=== PATIENT | female | born 1985 | race Caucasian/White ===

== ENCOUNTER 2018-05-13 06:02 | Emergency (ER) | payer OTHER ==
[~2018-05-13] VITALS: Ht 157.5 cm; Wt 65.3 kg
[~2018-05-13 06:02] MED LIST: ALBU90OI INH; ERGO400 PO; FLUO10 PO; IBUP800 PO; Percocet 5-3251 EACH PO; Sprintec1 EACH PO
[2018-05-13] MEDS ORDERED: Cleocin HCl300 MG PO (07:35)
== END 2018-05-13 08:14 | disposition home or self-care (01) ==
LOC: ER 06:02
DX: L03.211 Cellulitis of face (principal); Z91.018 Allergy to other foods; Z88.6 Allergy status to analgesic agent; Z79.899 Other long term (current) drug therapy
CPT/HCPCS: 36415; 96365; 99283-25

== ENCOUNTER 2018-06-20 17:22 | Emergency (ER) | payer OTHER ==
[~2018-06-20] VITALS: Ht 157.5 cm; Wt 68.0 kg
[~2018-06-20 17:22] MED LIST changes: +Cleocin HCl300 MG PO
[2018-06-20] MEDS ORDERED: Cleocin HCl300 MG PO (18:30)
== END 2018-06-20 18:36 | disposition home or self-care (01) ==
LOC: ER 17:22
DX: L03.211 Cellulitis of face (principal); Z91.018 Allergy to other foods; Z88.6 Allergy status to analgesic agent; Z88.8 Allergy status to other drugs, medicaments and biological substances; Z79.899 Other long term (current) drug therapy
CPT/HCPCS: 99283

== ENCOUNTER → 2018-08-05 | Outpatient (CLI) | payer OTHER ==
[2018-08-06 17:07] LABS: HPV 16 Negative (Negative); HPV 18 Negative (Negative); HPV OTHER HR TYPES Positive (Negative)
== END | disposition home or self-care (01) ==
LOC: LAB 10:18 → LAB SHORT 10:18
PROVIDERS: Obstetrics & Gynecology
DX: Z01.419 Encounter for gynecological examination (general) (routine) without abnormal findings (principal)
CPT/HCPCS: 87624; 87625; G0123

== ENCOUNTER → 2018-10-06 | Outpatient (CLI) | payer OTHER ==
[2018-10-09 15:07] LABS: CHLAMYDIA BY NAA Negative (Negative); GONOCOCCUS BY NAA Negative (Negative); TRICH VAG BY NAA Negative (Negative)
== END | disposition home or self-care (01) ==
LOC: LAB SHORT 13:30 → PLD 13:30 → LAB 13:30
PROVIDERS: Obstetrics & Gynecology
DX: Z11.3 Encounter for screening for infections with a predominantly sexual mode of transmission (principal); R87.810 Cervical high risk human papillomavirus (HPV) DNA test positive
CPT/HCPCS: 87491; 87591; 87661; 88305

== ENCOUNTER 2018-11-27 06:07 | Day surgery (SDC) | payer OTHER ==
[~2018-11-27] VITALS: Ht 157.5 cm; Wt 69.0 kg
[~2018-11-27 06:07] MED LIST changes: +ALBU90OI
[2018-11-27] MEDS ORDERED: Multivitamin1 EAC1 PO (06:48)
== END 2018-11-27 09:00 | disposition home or self-care (01) ==
LOC: ORSCSDS 06:07
PROVIDERS: Obstetrics & Gynecology
PROC: 0UT74ZZ Resection of Bilateral Fallopian Tubes, Percutaneous Endoscopic Approach (ICD-10-PCS; principal; 2018-11-27 07:30)
DX: Z30.2 Encounter for sterilization (principal)
CPT/HCPCS: 88302; J0330; J1100; J1885; J2250; J2405; J2704; J3010; J7120

== ENCOUNTER 2019-07-19 16:47 | Emergency (ER) | payer OTHER ==
[~2019-07-19] VITALS: Ht 157.5 cm; Wt 65.8 kg
[~2019-07-19 16:47] MED LIST changes: +Multivitamin1 EAC1 PO
[2019-07-19] MEDS ORDERED: Robaxin-750750 MG PO (18:56)
[2019-07-19] MEDS ORDERED: IBUP600 PO (18:59)
== END 2019-07-19 19:19 | disposition home or self-care (01) ==
LOC: ER 16:47
DX: S46.911A Strain of unspecified muscle, fascia and tendon at shoulder and upper arm level, right arm, initial encounter (principal); S43.401A Unspecified sprain of right shoulder joint, initial encounter; Z91.018 Allergy to other foods; Z88.6 Allergy status to analgesic agent; Z91.048 Other nonmedicinal substance allergy status; W01.0XXA Fall on same level from slipping, tripping and stumbling without subsequent striking against object, initial encounter
CPT/HCPCS: 73030; 99283-25

== ENCOUNTER 2019-10-19 15:31 | Emergency (ER) | payer OTHER ==
[~2019-10-19] VITALS: Ht 157.5 cm; Wt 70.3 kg
[~2019-10-19 15:31] MED LIST changes: +IBUP600 PO; +Robaxin-750750 MG PO
[2019-10-19] MEDS ORDERED: Prednisone20 MG PO (18:27)
[2019-10-19] MEDS ORDERED: Flonase 0.05% N16 GM (18:27)
== END 2019-10-19 18:32 | disposition home or self-care (01) ==
LOC: ER 15:31
DX: J01.90 Acute sinusitis, unspecified (principal)
CPT/HCPCS: 87081; 87147; 87430; 99283; J7512

== ENCOUNTER → 2020-05-27 | Outpatient (CLI) | payer OTHER ==
[~2020-05-27] MED LIST changes: +Flonase 0.05% N16 GM; +Prednisone20 MG PO
== END | disposition home or self-care (01) ==
LOC: LAB SHORT 16:34 → LAB EV 16:34
DX: L72.3 Sebaceous cyst (principal)
CPT/HCPCS: 87070; 87075; 87077; 87147; 87186; 87205

== ENCOUNTER → 2023-05-13 | Outpatient (CLI) | payer OTHER ==
[2023-05-17 12:12] LABS: HPV 16 Negative (Negative); HPV 18 Negative (Negative); HPV OTHER HR TYPES Negative (Negative)
== END ==
LOC: LAB SHORT 17:14 → LAB 17:14
PROVIDERS: Nurse Practitioner Family
DX: Z01.419 Encounter for gynecological examination (general) (routine) without abnormal findings (principal)
CPT/HCPCS: 87624; G0145

== ENCOUNTER 2023-05-16 21:51 | Emergency (ER) | payer OTHER ==
[~2023-05-16] VITALS: Ht 157.5 cm; Wt 76.2 kg
[2023-05-16 22:22] VITALS: BP 113/86
== END 2023-05-17 00:24 | disposition home or self-care (01) ==
LOC: ER 21:51
DX: L72.9 Follicular cyst of the skin and subcutaneous tissue, unspecified (principal); Z88.7 Allergy status to serum and vaccine; Z88.8 Allergy status to other drugs, medicaments and biological substances; Z91.018 Allergy to other foods
CPT/HCPCS: 73620; 99283-25

== ENCOUNTER 2024-07-02 19:24 | Emergency (ER) | payer OTHER ==
[~2024-07-02] VITALS: Ht 157.5 cm; Wt 72.6 kg
[2024-07-02 19:32] VITALS: BP 129/97
[2024-07-02] MEDS ORDERED: Robaxin750 MG PO (22:43)
[2024-07-02] MEDS ORDERED: ASPERFLEX1 EACH TOP (22:43)
== END 2024-07-02 23:09 | disposition home or self-care (01) ==
LOC: ER 19:24
DX: M25.511 Pain in right shoulder (principal); Z79.51 Long term (current) use of inhaled steroids; Z79.52 Long term (current) use of systemic steroids; Z88.7 Allergy status to serum and vaccine; Z88.6 Allergy status to analgesic agent; Z88.8 Allergy status to other drugs, medicaments and biological substances; Z91.018 Allergy to other foods
CPT/HCPCS: 73030; 99283-25